=== PATIENT | male | born 1990 | race Caucasian/White ===

== ENCOUNTER 2018-03-30 21:36 | Emergency (ER) | payer BC, OTHER ==
[2018-03-30] MEDS ORDERED: Acetaminophen 500 MG TAB ONE (21:58)
== END 2018-03-30 22:50 | disposition home or self-care (01) ==
LOC: ERS 21:36
DX: J02.9 Acute pharyngitis, unspecified (principal); J06.9 Acute upper respiratory infection, unspecified; F17.220 Nicotine dependence, chewing tobacco, uncomplicated
CPT/HCPCS: 87804; 99283